=== PATIENT | female | born 1970 | race Caucasian/White ===

== ENCOUNTER → 2021-08-21 | Outpatient (CLI) | payer OTHER ==
--- NOTE | 2021-08-24 08:48 | REP ---
INDICATION: DENSE BREAST. COMPARISON: Mammogram 07/13/2021. TECHNIQUE: Real-time sonographic evaluation of the entire bilateral breasts performed. FINDINGS: There are multiple bilateral simple benign cysts. At the site of the dominant nodule 12 o'clock right breast there is a dominant cyst measuring 3.4 x 1.6 x 2.3 cm. At 3 o'clock there is a 5 mm cyst. At 7 o'clock there is a 6 mm cyst. There is a cluster of ducts at 6 o'clock. At 9 o'clock there is a hypoechoic nodule measuring 5 x 4 x 5 mm, 6-7 cm from the nipple. At 12 o'clock left breast there is an 8 mm cyst. There is a cluster of ducts at that location as well. At 4 o'clock there is a 7 mm cyst. At 10 o'clock there is a 7 mm cyst. Elastography interrogation of all of the structures demonstrates no significant elevation in KP a values. IMPRESSION: BIRADS/ACR category 4A, low level of suspicion for malignancy. There are multiple bilateral simple benign appearing cysts present as discussed in detail above. A dominant cyst in the right breast accounts for the nodule seen on the mammogram of 07/13/2021. There is a hypoechoic nodule at the 9 o'clock position of the right breast which measures 5 mm. This could represent a small solid nodule or complex cyst. Recommend ultrasound-guided biopsy. RECOMMENDATION: Recommend ultrasound-guided biopsy of hypoechoic nodule right breast 9 o'clock, measuring 5 mm in diameter. <Electronically signed by Da Reid > 08/24/21 [id number]
== END ==
LOC: M WHC 10:31
PROVIDERS: ATTEND Family Medicine Addiction Medicine
DX: R92.8 Other abnormal and inconclusive findings on diagnostic imaging of breast (principal)

== ENCOUNTER → 2021-09-19 | Outpatient (CLI) | payer OTHER ==
[~2021-09-19] MED LIST: **SFHN** LIDOCAINE 1% MDV 20ML VIAL ONE; **SFHN** SODIUM BICARBONATE 8.4% 10MEQ 10ML VIAL ONE; WELLTAB38 PO
[2021-09-19 08:52] VITALS: BP 118/70
--- NOTE | 2021-09-19 09:02 | REP ---
INDICATION: RIGHT BREAST 9:00 6-7 CFN w/CLIP PLCMT AND POST MAMMO. COMPARISON: 07/13/2021. TECHNIQUE: ML and CC views right breast. FINDINGS: Following ultrasound-guided biopsy of a nodule at 9 o'clock, a biopsy marking clip is seen at the 9 o'clock position. IMPRESSION: Successful deployment of biopsy clip at the site of the ultrasound-guided biopsy at 9 o'clock. RECOMMENDATION: None. <Electronically signed by Da Reid > 09/19/21 [id number]
--- NOTE | 2021-09-19 18:29 | REP ---
INDICATION: RIGHT BREAST 9:00 6-7CFN W/CLIP PLACT AND POST MAMMO. COMPARISON: None. TECHNIQUE: The procedure was performed under the general supervision of Dr. Reid. Patient has a history of a 5 mm hypoechoic nodule in the 9 o'clock position of the right breast seen on a previous ultrasound dated 08/21/2021. The risks and benefits of the procedure were explained to the patient and informed consent was obtained. The right breast nodule was localized using ultrasound guidance. The skin was prepped and draped in a sterile fashion. Ten 1% Xylocaine was used as a local anesthetic. Using ultrasound guidance a 14-gauge coaxial needle biopsy system was inserted and6 core biopsy samples were obtained. A marker clip (HydroMark shape 3) was placed at the biopsy site The patient tolerated the procedure well and there were no immediate complications. After the appropriate amount of monitored convalescence, the patient was discharged from the department. EBL: Less than 1 FINDINGS: None IMPRESSION: Ultrasound-guided right breast biopsy with marker clip placement (HydroMark shape 3) <Electronically signed by Hero Fierro > 09/19/21 [id number] <Electronically signed by Da Reid > 09/19/21 [id number]
== END ==
LOC: M WHCPRO 07:03
PROVIDERS: ATTEND Surgery
DX: D24.2 Benign neoplasm of left breast (principal); R92.8 Other abnormal and inconclusive findings on diagnostic imaging of breast

== ENCOUNTER → 2022-04-13 | Outpatient (CLI) | payer OTHER ==
[~2022-04-13] MED LIST changes: -**SFHN** LIDOCAINE 1% MDV 20ML VIAL ONE; -**SFHN** SODIUM BICARBONATE 8.4% 10MEQ 10ML VIAL ONE
== END ==
LOC: M WHC 07:54
PROVIDERS: ATTEND Nurse Practitioner Women's Health
DX: R92.8 Other abnormal and inconclusive findings on diagnostic imaging of breast (principal)

== ENCOUNTER → 2022-06-21 | Outpatient (CLI) | payer OTHER ==
[2022-06-21 09:57] LABS: HEMATOCRIT 46.3 % (36.0-47.0); HEMOGLOBIN 14.8 g/dl (12.0-15.5); MEAN CORPUSCULAR HEMOGLOBIN 30.4 pg (27.0-33.0); MEAN CORPUSCULAR VOLUME 95.1 fl (80.0-96.0); PLATELET COUNT, AUTOMATED 265 10^3/uL (150-450); RED BLOOD COUNT 4.87 10^6/uL (4.00-5.40); WHITE BLOOD COUNT 7.7 10^3/uL (4.0-10.0)
== END ==
LOC: M WUC 08:00
PROVIDERS: ATTEND Physician Assistant Medical
DX: R19.5 Other fecal abnormalities (principal)

== ENCOUNTER → 2022-07-09 | Outpatient (CLI) | payer OTHER | LOC: M LABSMTC 09:16 | PROVIDERS: ATTEND Anesthesiology | DX: Z01.818 Encounter for other preprocedural examination (principal); Z11.52 Encounter for screening for COVID-19 ==

== ENCOUNTER 2022-07-13 06:44 | Day surgery (SDC) | payer OTHER ==
[~2022-07-13] VITALS: Ht 160 cm; Wt 76.7 kg
[~2022-07-13 06:44] MED LIST changes: +NS 1,000 ML IV ONE
[2022-07-13] MEDS ORDERED: propofoL 200 MG/20 ML VIAL As Ordered ONE (07:32)
[2022-07-13] MEDS ORDERED: LIDOCAINE 2% 100MG/5ML SDV (FOR ANES.) As Ordered ONE (07:32)
[2022-07-13 07:53] VITALS: BP 128/62
== END 2022-07-13 08:21 | disposition home or self-care (01) ==
LOC: M OPP 06:44
PROVIDERS: ATTEND Internal Medicine Gastroenterology
DX: R19.5 Other fecal abnormalities (principal); K64.8 Other hemorrhoids; Z79.899 Other long term (current) drug therapy; F17.200 Nicotine dependence, unspecified, uncomplicated; F32.9 Major depressive disorder, single episode, unspecified; F41.9 Anxiety disorder, unspecified; Z80.0 Family history of malignant neoplasm of digestive organs; Z80.3 Family history of malignant neoplasm of breast; Z80.43 Family history of malignant neoplasm of testis; Z80.6 Family history of leukemia

== ENCOUNTER → 2022-09-13 | Outpatient (REF) | payer OTHER ==
[~2022-09-13] MED LIST changes: -NS 1,000 ML IV ONE
== END ==
LOC: M LAB REF 11:24
PROVIDERS: ATTEND Nurse Practitioner Family
DX: R07.0 Pain in throat (principal)

== ENCOUNTER → 2022-09-28 | Outpatient (REF) | payer OTHER ==
[2022-09-28 12:52] LABS: BASO # 0.1 10^3/uL (0.0-0.2); BASO % 1.1 % (0.0-1.0); EOS # 0.3 10^3/uL (0.0-0.5); EOS % 3.1 % (0.0-3.0); HEMATOCRIT 46.6 % (36.0-47.0); HEMOGLOBIN 14.6 g/dl (12.0-15.5); LYMPH % 24.6 % (24.0-44.0); MEAN CORPUSCULAR HEMOGLOBIN 29.7 pg (27.0-33.0); MEAN CORPUSCULAR HGB CONC 31.3 g/dl (32.0-36.5); MEAN CORPUSCULAR VOLUME 94.9 fl (80.0-96.0); MONO # 0.8 10^3/uL (0.0-0.8); MONO % 9.3 % (2.0-8.0); NEUTROPHILS % 61.7 % (36.0-66.0); PLATELET COUNT, AUTOMATED 272 10^3/uL (150-450); RED BLOOD COUNT 4.91 10^6/uL (4.00-5.40); WHITE BLOOD COUNT 8.1 10^3/uL (4.0-10.0)
[2022-09-28 13:21] LABS: ALBUMIN 3.8 G/DL (3.2-5.2); ALKALINE PHOSPHATASE 101 U/L (46-116); ALT/SGPT 19 U/L (7.0-40); AST/SGOT 16 U/L (<34); BILIRUBIN,TOTAL 0.5 MG/DL (0.3-1.2); BLOOD UREA NITROGEN 14 MG/DL (9-23); CALCIUM LEVEL 9.1 MG/DL (8.5-10.1); CARBON DIOXIDE LEVEL 29 MMOL/L (20-31); CHLORIDE LEVEL 106 MMOL/L (98-107); CHOLESTEROL LEVEL 216 MG/DL (<200); CHOLESTEROL RISK RATIO 3.23 (<5); CREATININE FOR GFR 0.84 MG/DL (0.55-1.30); GLOMERULAR FILTRATION RATE > 60.0 (>51); GLUCOSE, FASTING 80 MG/DL (60-100); HDL CHOLESTEROL 66.7 MG/DL (>40); LDL CHOLESTEROL 128.9 MG/DL (<100); NON-HDL-C 149 MG/DL; POTASSIUM SERUM 4.8 MMOL/L (3.5-5.1); SODIUM LEVEL 139 MMOL/L (136-145); TOTAL PROTEIN 6.5 G/DL (5.7-8.2); TRIGLYCERIDES LEVEL 102 MG/DL (<150)
[2022-09-28 13:23] LABS: THYROID STIMULATING HORMONE 0.913 uIU/ML (0.55-4.78)
[2022-09-28 13:48] LABS: HIV 1&2 SCREEN CENTAUR NEGATIVE (NEGATIVE)
== END ==
LOC: M LAB REF 12:26
PROVIDERS: ATTEND Family Medicine Addiction Medicine
DX: E66.3 Overweight (principal); R07.0 Pain in throat

== ENCOUNTER → 2023-10-29 | Outpatient (CLI) | payer OTHER | LOC: M SLEEP HO 11:09 | PROVIDERS: ATTEND Nurse Practitioner Family | DX: R40.0 Somnolence (principal); G47.30 Sleep apnea, unspecified ==

== ENCOUNTER → 2024-02-11 | Outpatient (CLI) | payer OTHER | LOC: M WHC 16:42 | PROVIDERS: ATTEND Family Medicine Addiction Medicine | DX: Z12.31 Encounter for screening mammogram for malignant neoplasm of breast (principal) ==

== ENCOUNTER → 2024-02-27 | Outpatient (CLI) | payer OTHER | LOC: M SLEEP 20:00 | PROVIDERS: ATTEND Nurse Practitioner Family | DX: R40.0 Somnolence (principal); R06.83 Snoring ==

== ENCOUNTER → 2024-10-08 | Outpatient (REF) | payer OTHER ==
[2024-10-08 18:25] LABS: ALBUMIN 3.7 G/DL (3.2-5.2); ALKALINE PHOSPHATASE 105 U/L (35-104); ALT/SGPT 26 U/L (7.0-40); AST/SGOT 16 U/L (<34); BILIRUBIN,TOTAL 0.2 MG/DL (0.3-1.2); BLOOD UREA NITROGEN 15 MG/DL (9-23); CALCIUM LEVEL 9.6 MG/DL (8.5-10.1); CARBON DIOXIDE LEVEL 31 MMOL/L (20-31); CHLORIDE LEVEL 107 MMOL/L (98-107); CHOLESTEROL LEVEL 218 MG/DL (<200); CHOLESTEROL RISK RATIO 3.77 (<5); CREATININE FOR GFR 0.78 MG/DL (0.55-1.30); GLOMERULAR FILTRATION RATE > 60.0 (>51); GLUCOSE, FASTING 91 MG/DL (60-100); HDL CHOLESTEROL 57.8 MG/DL (>40); LDL CHOLESTEROL 129.4 MG/DL (<100); NON-HDL-C 160.2 MG/DL; POTASSIUM SERUM 4.4 MMOL/L (3.5-5.1); SODIUM LEVEL 143 MMOL/L (136-145); THYROID STIMULATING HORMONE 0.734 uIU/ML (0.55-4.78); TOTAL PROTEIN 6.6 G/DL (5.7-8.2); TRIGLYCERIDES LEVEL 154 MG/DL (<150)
== END ==
LOC: M LAB REF 16:40
PROVIDERS: ATTEND Family Medicine Addiction Medicine
DX: E66.3 Overweight (principal)